=== PATIENT | female | born 1975 | race Caucasian/White ===

== ENCOUNTER 2020-01-16 06:03 | Inpatient (IN) ==
[2020-01-16] MEDS: 0.9 % Sodium Chloride 1,000 ML IVC SCH ×2 (06:23→10:39)
[2020-01-16 06:31] LABS: Basophils # 0.1 K/mcL (0.0-0.2); Basophils % 0.3 %; Eosinophils # 0.2 K/mcL (0.0-0.6); Eosinophils % 0.9 %; Hematocrit 38.6 % (35.3-44.9); Hemoglobin 13.5 g/dL (11.5-15.4); Immature Granulocytes % 0.4 % (0-4); Lymphocytes # 3.6 K/mcL (0.6-4.6); Lymphocytes % 15.7 %; Mean Corpuscular Hemoglobin 30.3 pg (28.0-33.3); Mean Corpuscular Volume 86.7 fL (83.0-100.0); Mean Platelet Volume 8.6 fL (9.4-12.4); Monocytes # 1.9 K/mcL (0.0-1.3); Monocytes % 8.1 %; Platelet Count 332 K/mcL (140-400); Red Blood Count 4.45 M/mcL (3.82-4.97); Red Cell Distribution Width 11.9 % (11.5-14.5); Segmented Neutrophils % 74.6 %; White Blood Count 22.9 K/mcL (4.3-11.1)
[2020-01-16] MEDS ORDERED: Isovue-370 500 ML BOTTLE IVP ONE (06:33)
[2020-01-16 06:35] LABS: Prothrombin Time 10.9 Seconds (9.4-12.1)
[2020-01-16] MEDS ORDERED: *HR* FentaNYL (PF) 100 MCG/2 ML VIAL IVP ONE (06:36)
[2020-01-16 06:37] LABS: Activated Partial Thrombo Time 31.8 Seconds (26.0-36.0)
[2020-01-16 06:53] LABS: Alanine Aminotransferase 24 Units/L (7-52); Albumin 4.2 g/dL (3.5-5.7); Albumin/Globulin Ratio 1.6 (1.1-2.2); Alkaline Phosphatase 97 Units/L (34-104); Aspartate Amino Transferase 13 Units/L (13-39); BUN/Creatinine Ratio 16 (6-26); Bilirubin,Direct 0.1 mg/dL (0.0-0.2); Bilirubin,Indirect 0.4 mg/dL (0.0-1.0); Bilirubin,Total 0.5 mg/dL (0.3-1.0); Blood Urea Nitrogen 12 mg/dL (6-20); Calcium 9.5 mg/dL (8.6-10.3); Carbon Dioxide 27 mEq/L (23-29); Chloride 93 mEq/L (98-107); Globulin 2.7 g/dL (2.4-3.5); Glucose 280 mg/dL (70-105); Magnesium 0.9 mg/dL (1.6-2.6); Osmolality,Calculated 280 (280-300); Potassium 3.9 mEq/L (3.5-5.1); Sodium 130 mEq/L (136-145); Total Protein 6.9 g/dL (6.4-8.9); Troponin I < 0.03 ng/mL (< 0.04); eGFR For African Americans > 60 (> 60); eGFR For Non-African Americans > 60 (> 60)
[2020-01-16] MEDS ORDERED: Piperacillin/Tazobactam 3.375 GM in 0.9 % Sodium Chloride Mini Bag 100 ML IVPB ONE (06:58)
[2020-01-16 07:26] LABS: Bilirubin,Urine Negative (Negative); Blood,Urine Negative (Negative); Clarity,Urine Clear (Clear); Color,Urine Colorless (Yellow); Glucose,Urine (UA) >=1000 mg/dL (Normal); Ketones,Urine Negative (Negative); Leukocyte Esterase,Urine Negative (Negative); Nitrite,Urine Negative (Negative); Protein,Urine Negative (Neg-Trace); RBC,Urine 0-3 per hpf (0-3); Specific Gravity,Urine 1.006 (1.010-1.025); Squamous Epithelial Cell,Urine Few per hpf (None-Few); Urobilinogen,Urine Normal (Normal)
[2020-01-16] MEDS ORDERED: *HR* Promethazine 25 MG/ML VIAL IVP PRN (09:05)
[2020-01-16] MEDS ORDERED: 0.9 % Sodium Chloride 1,000 ML IVC ONE (09:09)
[2020-01-16] MEDS ORDERED: Dextrose Gel 15 GM/37.5 ML TUBE PO PRN ×2 (09:09)
[2020-01-16] MEDS ORDERED: *HR* Dextrose 50 % in Water (Vial) 50 ML VIAL IVP PRN (09:09)
[2020-01-16] MEDS ORDERED: D5% in Water 1,000 ML IVC PRN (09:09)
[2020-01-16] MEDS ORDERED: Tdap (Boostrix) Vaccine 0.5 ML SYRINGE IM ONE (09:28)
[2020-01-16] MEDS ORDERED: Vancomycin 1,750 MG/517.5 ML IV.SOLN IVPB ONE (09:41)
[2020-01-16] MEDS: *HR* OxyCODONE Immed Rel 5 MG TABLET PO PRN (09:50)
[2020-01-16] MEDS ORDERED: Vancomycin 1,750 MG in 0.9 % Sodium Chloride 250 ML IVPB SCH (10:00)
[2020-01-16] MEDS: Acetaminophen 325 MG TABLET PO PRN ×2 (10:38→18:48)
[2020-01-16] MEDS: Insulin DETEMIR 100 UNIT/ML X5UNITS SQ SCH (10:41)
[2020-01-16 10:58] LABS: Estimated Average Glucose 206 mg/dl
[2020-01-16] MEDS: Insulin LISPRO 300 UNITS/3 ML VIAL SQ SCH ×3 (13:16→20:35)
[2020-01-16] MEDS: *HR* HYDROcodone/Acet 5/325 mg TABLET PO PRN ×2 (13:42→20:31)
[2020-01-16] MEDS: Piperacillin/Tazobactam 3.375 GM in 0.9 % Sodium Chloride Mini Bag 100 ML IVPB SCH (16:50)
[2020-01-16] MEDS: Ringers Solution, Lactated 1,000 ML IVC SCH (16:50)
[2020-01-16] MEDS ORDERED: Ketorolac 30 MG/ML VIAL IVP ONE (16:54)
[2020-01-16] MEDS ORDERED: Ibuprofen 800 MG TABLET PO ONE (21:57)
[2020-01-16] MEDS ORDERED: Acetaminophen IV 1,000 MG/100 ML INFUS..BTL IVPB ONE (23:44)
[2020-01-16] MEDS ORDERED: *HR* LORazepam 2 MG/ML VIAL IVP ONE (23:45)
[2020-01-17] MEDS: Piperacillin/Tazobactam 3.375 GM in 0.9 % Sodium Chloride Mini Bag 100 ML IVPB SCH ×3 (00:09→15:08)
[2020-01-17 00:49] LABS: Hematocrit 32.3 % (35.3-44.9); Hemoglobin 11.1 g/dL (11.5-15.4); Mean Corpuscular HGB Conc 34.4 g/dL (31.6-35.5); Mean Corpuscular Hemoglobin 30.7 pg (28.0-33.3); Mean Corpuscular Volume 89.5 fL (83.0-100.0); Mean Platelet Volume 8.8 fL (9.4-12.4); Platelet Count 257 K/mcL (140-400); Red Blood Count 3.61 M/mcL (3.82-4.97); Red Cell Distribution Width 11.9 % (11.5-14.5); White Blood Count 23.8 K/mcL (4.3-11.1)
[2020-01-17 01:09] LABS: BUN/Creatinine Ratio 14 (6-26); Blood Urea Nitrogen 9 mg/dL (6-20); Carbon Dioxide 25 mEq/L (23-29); Chloride 102 mEq/L (98-107); Glucose 254 mg/dL (70-105); Osmolality,Calculated 287 (280-300); Potassium 3.4 mEq/L (3.5-5.1); Sodium 135 mEq/L (136-145); eGFR For African Americans > 60 (> 60); eGFR For Non-African Americans > 60 (> 60)
[2020-01-17] MEDS: Ringers Solution, Lactated 1,000 ML IVC SCH (02:17)
[2020-01-17] MEDS: *HR* Enoxaparin 40 MG/0.4 ML SYRINGE SQ SCH (05:01)
[2020-01-17] MEDS: *HR* OxyCODONE Immed Rel 5 MG TABLET PO PRN ×2 (06:29→18:14)
[2020-01-17] MEDS: Insulin LISPRO 300 UNITS/3 ML VIAL SQ SCH ×4 (09:11→21:58)
[2020-01-17] MEDS: Insulin DETEMIR 100 UNIT/ML X5UNITS SQ SCH (09:36)
[2020-01-17] MEDS: Vancomycin 1,750 MG/517.5 ML IV.SOLN IVPB SCH ×3 (10:57→22:52)
[2020-01-17] MEDS: *HR* HYDROcodone/Acet 5/325 mg TABLET PO PRN ×2 (11:06→21:55)
[2020-01-17] MEDS: clonazePAM 1 MG TABLET PO SCH ×2 (15:07→21:52)
[2020-01-17] MEDS: Gabapentin 400 MG CAPSULE PO SCH ×2 (15:08→21:52)
[2020-01-17] MEDS: Acetaminophen 325 MG TABLET PO PRN (18:13)
[2020-01-17] MEDS: 0.9 % Sodium Chloride 1,000 ML IVC SCH ×2 (19:21→19:22)
[2020-01-17] MEDS: OXcarbazepine 150 MG TABLET PO SCH (21:52)
[2020-01-17] MEDS: OLANZapine 10 MG TAB.RAPDIS PO SCH (21:52)
[2020-01-18] MEDS: Piperacillin/Tazobactam 3.375 GM in 0.9 % Sodium Chloride Mini Bag 100 ML IVPB SCH ×3 (01:12→15:11)
[2020-01-18 02:51] LABS: Basophils # 0.1 K/mcL (0.0-0.2); Basophils % 0.4 %; Eosinophils # 0.3 K/mcL (0.0-0.6); Eosinophils % 1.4 %; Hematocrit 34.3 % (35.3-44.9); Hemoglobin 11.6 g/dL (11.5-15.4); Immature Granulocytes % 0.8 % (0-4); Lymphocytes # 4.3 K/mcL (0.6-4.6); Lymphocytes % 18.1 %; Mean Corpuscular HGB Conc 33.8 g/dL (31.6-35.5); Mean Corpuscular Volume 91.7 fL (83.0-100.0); Mean Platelet Volume 9.6 fL (9.4-12.4); Monocytes # 1.7 K/mcL (0.0-1.3); Monocytes % 7.2 %; Neutrophils # 16.9 K/mcL (1.6-8.9); Platelet Count 262 K/mcL (140-400); Red Blood Count 3.74 M/mcL (3.82-4.97); Red Cell Distribution Width 11.9 % (11.5-14.5); Segmented Neutrophils % 72.1 %; White Blood Count 23.4 K/mcL (4.3-11.1)
[2020-01-18 02:57] LABS: BUN/Creatinine Ratio 13 (6-26); Blood Urea Nitrogen 8 mg/dL (6-20); Carbon Dioxide 26 mEq/L (23-29); Chloride 103 mEq/L (98-107); Glucose 239 mg/dL (70-105); Osmolality,Calculated 294 (280-300); Potassium 3.9 mEq/L (3.5-5.1); Sodium 139 mEq/L (136-145); eGFR For African Americans > 60 (> 60); eGFR For Non-African Americans > 60 (> 60)
[2020-01-18] MEDS: Acetaminophen 325 MG TABLET PO PRN ×2 (05:31→14:19)
[2020-01-18] MEDS: *HR* Enoxaparin 40 MG/0.4 ML SYRINGE SQ SCH (05:31)
[2020-01-18] MEDS ORDERED: Ketorolac 15 MG/ML VIAL IVP PRN (06:44)
[2020-01-18] MEDS ORDERED: 0.9 % Sodium Chloride 1,000 ML IVC SCH (08:00)
[2020-01-18] MEDS: Insulin LISPRO 300 UNITS/3 ML VIAL SQ SCH ×4 (08:13→21:10)
[2020-01-18] MEDS: OXcarbazepine 150 MG TABLET PO SCH ×2 (08:14→20:43)
[2020-01-18] MEDS: Gabapentin 400 MG CAPSULE PO SCH ×3 (08:14→20:43)
[2020-01-18] MEDS: Venlafaxine XR (24 HR) 150 MG CAP.ER.24H PO SCH (08:14)
[2020-01-18] MEDS: Venlafaxine XR (24 HR) 75 MG CAP.ER.24H PO SCH (08:15)
[2020-01-18] MEDS: clonazePAM 1 MG TABLET PO SCH ×3 (08:15→20:43)
[2020-01-18] MEDS: *HR* HYDROcodone/Acet 5/325 mg TABLET PO PRN ×3 (09:55→22:31)
[2020-01-18] MEDS: Vancomycin 2,000 MG/520 ML IV.SOLN IVPB SCH ×2 (09:56→22:30)
[2020-01-18] MEDS: Insulin DETEMIR 100 UNIT/ML X5UNITS SQ SCH (09:56)
[2020-01-18] MEDS: OLANZapine 10 MG TAB.RAPDIS PO SCH (20:43)
[2020-01-19] MEDS: Piperacillin/Tazobactam 3.375 GM in 0.9 % Sodium Chloride Mini Bag 100 ML IVPB SCH ×2 (00:13→09:02)
[2020-01-19 00:59] LABS: Basophils # 0.1 K/mcL (0.0-0.2); Basophils % 0.5 %; Eosinophils # 0.4 K/mcL (0.0-0.6); Eosinophils % 2.7 %; Hemoglobin 10.3 g/dL (11.5-15.4); Immature Granulocytes % 0.9 % (0-4); Lymphocytes # 3.7 K/mcL (0.6-4.6); Lymphocytes % 24.7 %; Mean Corpuscular HGB Conc 33.2 g/dL (31.6-35.5); Mean Corpuscular Hemoglobin 30.2 pg (28.0-33.3); Mean Corpuscular Volume 90.9 fL (83.0-100.0); Mean Platelet Volume 8.9 fL (9.4-12.4); Monocytes # 1.2 K/mcL (0.0-1.3); Monocytes % 7.6 %; Neutrophils # 9.6 K/mcL (1.6-8.9); Platelet Count 271 K/mcL (140-400); Red Blood Count 3.41 M/mcL (3.82-4.97); Red Cell Distribution Width 11.9 % (11.5-14.5); Segmented Neutrophils % 63.6 %; White Blood Count 15.2 K/mcL (4.3-11.1)
[2020-01-19 01:18] LABS: BUN/Creatinine Ratio 11 (6-26); Blood Urea Nitrogen 7 mg/dL (6-20); Calcium 9.2 mg/dL (8.6-10.3); Carbon Dioxide 27 mEq/L (23-29); Chloride 99 mEq/L (98-107); Glucose 284 mg/dL (70-105); Osmolality,Calculated 290 (280-300); Potassium 3.5 mEq/L (3.5-5.1); Sodium 136 mEq/L (136-145); eGFR For African Americans > 60 (> 60); eGFR For Non-African Americans > 60 (> 60)
[2020-01-19] MEDS: *HR* HYDROcodone/Acet 5/325 mg TABLET PO PRN ×3 (05:00→22:05)
[2020-01-19] MEDS: *HR* Enoxaparin 40 MG/0.4 ML SYRINGE SQ SCH (05:01)
[2020-01-19] MEDS: clonazePAM 1 MG TABLET PO SCH ×3 (08:43→20:38)
[2020-01-19] MEDS: OXcarbazepine 150 MG TABLET PO SCH ×2 (08:44→20:38)
[2020-01-19] MEDS: Gabapentin 400 MG CAPSULE PO SCH ×3 (08:44→20:38)
[2020-01-19] MEDS: Venlafaxine XR (24 HR) 75 MG CAP.ER.24H PO SCH (08:45)
[2020-01-19] MEDS: Venlafaxine XR (24 HR) 150 MG CAP.ER.24H PO SCH (08:45)
[2020-01-19] MEDS: Insulin DETEMIR 100 UNIT/ML X5UNITS SQ SCH ×2 (08:46→20:38)
[2020-01-19] MEDS: Insulin LISPRO 300 UNITS/3 ML VIAL SQ SCH ×4 (09:04→20:33)
[2020-01-19] MEDS: Vancomycin 2,000 MG/520 ML IV.SOLN IVPB SCH (13:20)
[2020-01-19] MEDS: Ketorolac 15 MG/ML VIAL IVP PRN (20:04)
[2020-01-19] MEDS: OLANZapine 10 MG TAB.RAPDIS PO SCH (20:38)
[2020-01-20] MEDS: Piperacillin/Tazobactam 3.375 GM in 0.9 % Sodium Chloride Mini Bag 100 ML IVPB SCH ×4 (00:23→23:27)
[2020-01-20 00:51] LABS: Basophils # 0.1 K/mcL (0.0-0.2); Basophils % 0.6 %; Eosinophils # 0.4 K/mcL (0.0-0.6); Eosinophils % 2.9 %; Hematocrit 31.9 % (35.3-44.9); Hemoglobin 10.4 g/dL (11.5-15.4); Immature Granulocytes % 1.5 % (0-4); Lymphocytes # 3.4 K/mcL (0.6-4.6); Lymphocytes % 27.1 %; Mean Corpuscular HGB Conc 32.6 g/dL (31.6-35.5); Mean Corpuscular Hemoglobin 29.6 pg (28.0-33.3); Mean Corpuscular Volume 90.9 fL (83.0-100.0); Monocytes # 1.1 K/mcL (0.0-1.3); Monocytes % 8.4 %; Neutrophils # 7.5 K/mcL (1.6-8.9); Nucleated Red Blood Cells 0.2 /100 WBC (0); Platelet Count 313 K/mcL (140-400); Red Blood Count 3.51 M/mcL (3.82-4.97); Red Cell Distribution Width 11.7 % (11.5-14.5); Segmented Neutrophils % 59.5 %; White Blood Count 12.5 K/mcL (4.3-11.1)
[2020-01-20 00:53] LABS: BUN/Creatinine Ratio 18 (6-26); Blood Urea Nitrogen 13 mg/dL (6-20); Carbon Dioxide 29 mEq/L (23-29); Chloride 100 mEq/L (98-107); Glucose 217 mg/dL (70-105); Osmolality,Calculated 291 (280-300); Potassium 3.7 mEq/L (3.5-5.1); Sodium 137 mEq/L (136-145); eGFR For African Americans > 60 (> 60); eGFR For Non-African Americans > 60 (> 60)
[2020-01-20] MEDS: Vancomycin 2,000 MG/520 ML IV.SOLN IVPB SCH ×2 (01:10→13:16)
[2020-01-20] MEDS: *HR* HYDROcodone/Acet 5/325 mg TABLET PO PRN ×2 (06:04→19:49)
[2020-01-20] MEDS: *HR* Enoxaparin 40 MG/0.4 ML SYRINGE SQ SCH (06:04)
[2020-01-20] MEDS: Gabapentin 400 MG CAPSULE PO SCH ×3 (08:36→19:50)
[2020-01-20] MEDS: Venlafaxine XR (24 HR) 150 MG CAP.ER.24H PO SCH (08:37)
[2020-01-20] MEDS: clonazePAM 1 MG TABLET PO SCH ×3 (08:38→19:50)
[2020-01-20] MEDS: OXcarbazepine 150 MG TABLET PO SCH ×2 (08:38→19:50)
[2020-01-20] MEDS: Venlafaxine XR (24 HR) 75 MG CAP.ER.24H PO SCH (08:38)
[2020-01-20] MEDS: Insulin LISPRO 300 UNITS/3 ML VIAL SQ SCH ×4 (08:40→20:37)
[2020-01-20] MEDS: Insulin DETEMIR 100 UNIT/ML X5UNITS SQ SCH ×2 (08:44→20:36)
[2020-01-20] MEDS: Ketorolac 15 MG/ML VIAL IVP PRN (10:16)
[2020-01-20] MEDS ORDERED: Isovue-370 500 ML BOTTLE IVP ONE (10:38)
[2020-01-20] MEDS: OLANZapine 10 MG TAB.RAPDIS PO SCH (19:50)
[2020-01-21] MEDS: Vancomycin 2,000 MG/520 ML IV.SOLN IVPB SCH ×2 (00:42→13:10)
[2020-01-21 02:48] LABS: Basophils # 0.1 K/mcL (0.0-0.2); Basophils % 0.8 %; Eosinophils # 0.4 K/mcL (0.0-0.6); Eosinophils % 2.8 %; Hematocrit 32.2 % (35.3-44.9); Hemoglobin 10.9 g/dL (11.5-15.4); Immature Granulocytes % 2.2 % (0-4); Lymphocytes # 2.8 K/mcL (0.6-4.6); Lymphocytes % 21.8 %; Mean Corpuscular HGB Conc 33.9 g/dL (31.6-35.5); Mean Corpuscular Hemoglobin 30.5 pg (28.0-33.3); Mean Corpuscular Volume 90.2 fL (83.0-100.0); Mean Platelet Volume 8.8 fL (9.4-12.4); Monocytes % 7.7 %; Neutrophils # 8.4 K/mcL (1.6-8.9); Nucleated Red Blood Cells 0.2 /100 WBC (0); Platelet Count 335 K/mcL (140-400); Red Blood Count 3.57 M/mcL (3.82-4.97); Red Cell Distribution Width 11.6 % (11.5-14.5); Segmented Neutrophils % 64.7 %
[2020-01-21 03:08] LABS: BUN/Creatinine Ratio 18 (6-26); Blood Urea Nitrogen 12 mg/dL (6-20); Calcium 9.2 mg/dL (8.6-10.3); Carbon Dioxide 32 mEq/L (23-29); Chloride 101 mEq/L (98-107); Glucose 161 mg/dL (70-105); Osmolality,Calculated 293 (280-300); Potassium 3.5 mEq/L (3.5-5.1); Sodium 140 mEq/L (136-145); eGFR For African Americans > 60 (> 60); eGFR For Non-African Americans > 60 (> 60)
[2020-01-21] MEDS: *HR* HYDROcodone/Acet 5/325 mg TABLET PO PRN ×3 (03:38→18:51)
[2020-01-21] MEDS: *HR* Enoxaparin 40 MG/0.4 ML SYRINGE SQ SCH (05:28)
[2020-01-21] MEDS: Piperacillin/Tazobactam 3.375 GM in 0.9 % Sodium Chloride Mini Bag 100 ML IVPB SCH ×2 (09:50→16:10)
[2020-01-21] MEDS: clonazePAM 1 MG TABLET PO SCH ×3 (09:51→19:57)
[2020-01-21] MEDS: Venlafaxine XR (24 HR) 150 MG CAP.ER.24H PO SCH (09:51)
[2020-01-21] MEDS: OXcarbazepine 150 MG TABLET PO SCH ×2 (09:52→19:57)
[2020-01-21] MEDS: Venlafaxine XR (24 HR) 75 MG CAP.ER.24H PO SCH (09:52)
[2020-01-21] MEDS: Gabapentin 400 MG CAPSULE PO SCH ×3 (09:52→19:57)
[2020-01-21] MEDS: Insulin LISPRO 300 UNITS/3 ML VIAL SQ SCH ×4 (09:56→21:19)
[2020-01-21] MEDS: Insulin DETEMIR 100 UNIT/ML X5UNITS SQ SCH ×2 (10:04→21:19)
[2020-01-21] MEDS: Ketorolac 15 MG/ML VIAL IVP PRN (14:23)
[2020-01-21] MEDS: OLANZapine 10 MG TAB.RAPDIS PO SCH (19:58)
[2020-01-22] MEDS: Piperacillin/Tazobactam 3.375 GM in 0.9 % Sodium Chloride Mini Bag 100 ML IVPB SCH ×4 (01:02→23:19)
[2020-01-22] MEDS: Vancomycin 2,000 MG/520 ML IV.SOLN IVPB SCH ×3 (01:03→15:17)
[2020-01-22] MEDS: *HR* HYDROcodone/Acet 5/325 mg TABLET PO PRN ×3 (02:46→17:03)
[2020-01-22] MEDS: *HR* Enoxaparin 40 MG/0.4 ML SYRINGE SQ SCH (05:48)
[2020-01-22 06:31] LABS: Basophils # 0.1 K/mcL (0.0-0.2); Basophils % 0.7 %; Eosinophils # 0.3 K/mcL (0.0-0.6); Eosinophils % 2.7 %; Hematocrit 32.9 % (35.3-44.9); Immature Granulocytes % 2.5 % (0-4); Lymphocytes # 2.8 K/mcL (0.6-4.6); Lymphocytes % 22.5 %; Mean Corpuscular HGB Conc 33.4 g/dL (31.6-35.5); Mean Corpuscular Hemoglobin 31.1 pg (28.0-33.3); Mean Corpuscular Volume 92.9 fL (83.0-100.0); Mean Platelet Volume 8.9 fL (9.4-12.4); Monocytes % 8.1 %; Platelet Count 339 K/mcL (140-400); Red Blood Count 3.54 M/mcL (3.82-4.97); Red Cell Distribution Width 11.6 % (11.5-14.5); Segmented Neutrophils % 63.5 %; White Blood Count 12.5 K/mcL (4.3-11.1)
[2020-01-22 06:38] LABS: BUN/Creatinine Ratio 12 (6-26); Blood Urea Nitrogen 9 mg/dL (6-20); Calcium 8.9 mg/dL (8.6-10.3); Carbon Dioxide 35 mEq/L (23-29); Chloride 101 mEq/L (98-107); Glucose 183 mg/dL (70-105); Osmolality,Calculated 293 (280-300); Potassium 3.9 mEq/L (3.5-5.1); Sodium 140 mEq/L (136-145); eGFR For African Americans > 60 (> 60); eGFR For Non-African Americans > 60 (> 60)
[2020-01-22] MEDS: Insulin LISPRO 300 UNITS/3 ML VIAL SQ SCH ×4 (07:49→21:28)
[2020-01-22] MEDS: Venlafaxine XR (24 HR) 150 MG CAP.ER.24H PO SCH (07:50)
[2020-01-22] MEDS: Gabapentin 400 MG CAPSULE PO SCH ×3 (07:50→21:27)
[2020-01-22] MEDS: OXcarbazepine 150 MG TABLET PO SCH ×2 (07:50→21:28)
[2020-01-22] MEDS: clonazePAM 1 MG TABLET PO SCH ×3 (07:50→21:27)
[2020-01-22] MEDS: Venlafaxine XR (24 HR) 75 MG CAP.ER.24H PO SCH (07:51)
[2020-01-22] MEDS: Insulin DETEMIR 100 UNIT/ML X5UNITS SQ SCH ×2 (08:07→21:28)
[2020-01-22] MEDS ORDERED: Lidocaine -MPF 2% 2 ML VIAL ONE ×2 (11:42→12:25)
[2020-01-22] MEDS ORDERED: *HR* Succinylcholine 200 MG/10 ML VIAL IVP ONE ×2 (11:42→12:25)
[2020-01-22] MEDS ORDERED: Ondansetron 4 MG/2 ML VIAL ONE ×2 (11:42→12:25)
[2020-01-22] MEDS ORDERED: *HR* Propofol 200 MG/20 ML VIAL IVP ONE (12:25)
[2020-01-22] MEDS ORDERED: *HR* FentaNYL (PF) 100 MCG/2 ML VIAL ONE (12:26)
[2020-01-22] MEDS ORDERED: *HR* Midazolam HCl 2 MG/2 ML VIAL ONE (12:26)
[2020-01-22] MEDS ORDERED: Lidocaine HCL 4 ML Topical Solution (Laryng-O-Jet Kit Sterile Pak) TP ONE (12:31)
[2020-01-22] MEDS ORDERED: *HR* FentaNYL (PF) 100 MCG/2 ML VIAL IVP PRN (12:50)
[2020-01-22] MEDS ORDERED: Dexamethasone 4 MG/ML VIAL ONE (13:25)
[2020-01-22] MEDS ORDERED: Ipratropium/Albuterol Neb 3 ML ONE (13:45)
[2020-01-22] MEDS: *HR* HYDROmorphone PF 0.5 MG/0.5 ML SYRINGE IVP PRN ×2 (13:58→14:04)
[2020-01-22] MEDS ORDERED: Acetaminophen 325 MG TABLET PO PRN (14:42)
[2020-01-22] MEDS ORDERED: Dextrose Gel 15 GM/37.5 ML TUBE PO PRN ×2 (14:42)
[2020-01-22] MEDS ORDERED: *HR* Promethazine 25 MG/ML VIAL IVP PRN (14:42)
[2020-01-22] MEDS ORDERED: D5% in Water 1,000 ML IVC PRN (14:42)
[2020-01-22] MEDS ORDERED: *HR* Dextrose 50 % in Water (Vial) 50 ML VIAL IVP PRN (14:42)
[2020-01-22] MEDS: OLANZapine 10 MG TAB.RAPDIS PO SCH (21:27)
[2020-01-22] MEDS ORDERED: Insulin Human Regular 10 UNIT in 0.9 % Sodium Chloride 10 ML IV ONE (23:09)
[2020-01-23 01:43] LABS: Basophils # 0.1 K/mcL (0.0-0.2); Basophils % 0.5 %; Eosinophils % 0.1 %; Hematocrit 34.1 % (35.3-44.9); Hemoglobin 11.2 g/dL (11.5-15.4); Immature Granulocytes % 4.1 % (0-4); Lymphocytes # 1.9 K/mcL (0.6-4.6); Lymphocytes % 9.5 %; Mean Corpuscular HGB Conc 32.8 g/dL (31.6-35.5); Mean Corpuscular Volume 91.4 fL (83.0-100.0); Monocytes % 4.9 %; Neutrophils # 16.2 K/mcL (1.6-8.9); Platelet Count 396 K/mcL (140-400); Red Blood Count 3.73 M/mcL (3.82-4.97); Red Cell Distribution Width 11.8 % (11.5-14.5); Segmented Neutrophils % 80.9 %
[2020-01-23 01:59] LABS: BUN/Creatinine Ratio 15 (6-26); Blood Urea Nitrogen 13 mg/dL (6-20); Calcium 9.2 mg/dL (8.6-10.3); Carbon Dioxide 29 mEq/L (23-29); Chloride 98 mEq/L (98-107); Glucose 263 mg/dL (70-105); Osmolality,Calculated 293 (280-300); Potassium 3.7 mEq/L (3.5-5.1); Sodium 137 mEq/L (136-145); eGFR For African Americans > 60 (> 60); eGFR For Non-African Americans > 60 (> 60)
[2020-01-23] MEDS: Vancomycin 2,000 MG/520 ML IV.SOLN IVPB SCH ×2 (03:39→15:30)
[2020-01-23] MEDS: *HR* Enoxaparin 40 MG/0.4 ML SYRINGE SQ SCH (05:33)
[2020-01-23] MEDS: OXcarbazepine 150 MG TABLET PO SCH ×2 (07:41→19:54)
[2020-01-23] MEDS: Gabapentin 400 MG CAPSULE PO SCH ×3 (07:41→19:53)
[2020-01-23] MEDS: Venlafaxine XR (24 HR) 75 MG CAP.ER.24H PO SCH (07:41)
[2020-01-23] MEDS: Venlafaxine XR (24 HR) 150 MG CAP.ER.24H PO SCH (07:41)
[2020-01-23] MEDS: clonazePAM 1 MG TABLET PO SCH ×3 (07:42→19:54)
[2020-01-23] MEDS: Piperacillin/Tazobactam 3.375 GM in 0.9 % Sodium Chloride Mini Bag 100 ML IVPB SCH ×3 (07:43→23:47)
[2020-01-23] MEDS: Insulin DETEMIR 100 UNIT/ML X5UNITS SQ SCH (07:48)
[2020-01-23] MEDS: Insulin LISPRO 300 UNITS/3 ML VIAL SQ SCH ×4 (07:49→19:56)
[2020-01-23] MEDS: *HR* HYDROcodone/Acet 5/325 mg TABLET PO PRN ×3 (07:52→20:17)
[2020-01-23] MEDS: Nicotine 14 MG PATCH.TD24 TD SCH (18:16)
[2020-01-23] MEDS: OLANZapine 10 MG TAB.RAPDIS PO SCH (19:53)
[2020-01-24 02:22] LABS: Hemoglobin 10.2 g/dL (11.5-15.4); Mean Corpuscular HGB Conc 31.9 g/dL (31.6-35.5); Mean Corpuscular Hemoglobin 29.7 pg (28.0-33.3); Mean Platelet Volume 9.1 fL (9.4-12.4); Platelet Count 374 K/mcL (140-400); Red Blood Count 3.44 M/mcL (3.82-4.97); Red Cell Distribution Width 11.8 % (11.5-14.5); White Blood Count 13.9 K/mcL (4.3-11.1)
[2020-01-24] MEDS: Vancomycin 2,000 MG/520 ML IV.SOLN IVPB SCH ×2 (02:44→14:37)
[2020-01-24] MEDS: *HR* HYDROcodone/Acet 5/325 mg TABLET PO PRN ×3 (02:44→15:32)
[2020-01-24 03:09] LABS: Eosinophils # 0.1 K/mcL (0.0-0.6); Lymphocytes # 4.6 K/mcL (0.6-4.6); Monocytes # 0.3 K/mcL (0.0-1.3); Neutrophils # 8.8 K/mcL (1.6-8.9); Platelet Estimate Normal (Normal)
[2020-01-24 03:10] LABS: Reactive Lymphocytes Present (Not Present)
[2020-01-24] MEDS: *HR* Enoxaparin 40 MG/0.4 ML SYRINGE SQ SCH (05:31)
[2020-01-24] MEDS: Gabapentin 400 MG CAPSULE PO SCH ×2 (08:46→14:21)
[2020-01-24] MEDS: Venlafaxine XR (24 HR) 150 MG CAP.ER.24H PO SCH (08:47)
[2020-01-24] MEDS: *HR* Metformin 500 MG TABLET PO SCH ×2 (08:47→17:43)
[2020-01-24] MEDS: OXcarbazepine 150 MG TABLET PO SCH (08:47)
[2020-01-24] MEDS: clonazePAM 1 MG TABLET PO SCH ×2 (08:47→14:21)
[2020-01-24] MEDS: Venlafaxine XR (24 HR) 75 MG CAP.ER.24H PO SCH (08:47)
[2020-01-24] MEDS: Nicotine 14 MG PATCH.TD24 TD SCH (08:49)
[2020-01-24] MEDS: Insulin LISPRO 300 UNITS/3 ML VIAL SQ SCH ×3 (08:50→17:43)
[2020-01-24] MEDS ORDERED: Insulin DETEMIR 100 UNIT/ML X5UNITS SQ SCH (09:00)
[2020-01-24 15:24] VITALS: BP 148/88
[2020-01-24] MEDS ORDERED: Doxycycline 100 MG CAPSULE PO SCH (21:00)
== END 2020-01-24 18:00 | disposition home health service (06) | DRG 720 ==
LOC: EMEROOARM 06:03 → 2ANU 06:03 → SUATTDRO 09:05 → 2ANU 11:30 → SUATTDRO 01-17 15:45
PROVIDERS: ADMIT Internal Medicine; ATTEND Internal Medicine